=== PATIENT | female | born 1940 | race Caucasian/White ===

== ENCOUNTER 2022-02-22 13:54 | Inpatient (IN) ==
[2022-02-22] MEDS: Apixaban 2.5 MG TABLET PO SCH (20:50)
[2022-02-23 07:43] LABS: Basophils % 0.5 %; Eosinophils # 0.2 K/mcL (0.0-0.6); Eosinophils % 2.5 %; Hematocrit 35.1 % (35.3-44.9); Hemoglobin 11.8 g/dL (11.5-15.4); Immature Granulocytes % 3.3 % (0-4); Lymphocytes % 13.8 %; Mean Corpuscular HGB Conc 33.6 g/dL (31.6-35.5); Mean Corpuscular Volume 92.1 fL (83.0-100.0); Monocytes # 0.7 K/mcL (0.0-1.3); Monocytes % 8.9 %; Neutrophils # 5.2 K/mcL (1.6-8.9); Platelet Count 294 K/mcL (140-400); Red Blood Count 3.81 M/mcL (3.82-4.97); Red Cell Distribution Width 13.8 % (11.5-14.5); White Blood Count 7.3 K/mcL (4.3-11.1)
[2022-02-23] MEDS ORDERED: carvediloL 6.25 MG TABLET PO SCH (08:00)
[2022-02-23] MEDS: Apixaban 2.5 MG TABLET PO SCH ×3 (10:40→21:30)
[2022-02-23] MEDS: carvediloL 6.25 MG TABLET PO SCH ×2 (14:12→17:40)
[2022-02-23] MEDS: Acetaminophen 325 MG TABLET PO PRN (21:27)
[2022-02-24 08:18] LABS: Basophils # 0.1 K/mcL (0.0-0.2); Basophils % 0.6 %; Eosinophils # 0.3 K/mcL (0.0-0.6); Eosinophils % 2.9 %; Hematocrit 31.6 % (35.3-44.9); Hemoglobin 10.3 g/dL (11.5-15.4); Immature Granulocytes % 1.8 % (0-4); Lymphocytes # 1.9 K/mcL (0.6-4.6); Lymphocytes % 20.4 %; Mean Corpuscular HGB Conc 32.6 g/dL (31.6-35.5); Mean Corpuscular Hemoglobin 30.4 pg (28.0-33.3); Mean Corpuscular Volume 93.2 fL (83.0-100.0); Mean Platelet Volume 10.8 fL (9.4-12.4); Monocytes # 1.1 K/mcL (0.0-1.3); Monocytes % 11.7 %; Neutrophils # 5.9 K/mcL (1.6-8.9); Platelet Count 277 K/mcL (140-400); Red Blood Count 3.39 M/mcL (3.82-4.97); Red Cell Distribution Width 13.8 % (11.5-14.5); Segmented Neutrophils % 62.6 %; White Blood Count 9.4 K/mcL (4.3-11.1)
[2022-02-24 08:49] LABS: BUN/Creatinine Ratio 37 (6-26); Blood Urea Nitrogen 29 mg/dL (8-23); Calcium 8.4 mg/dL (8.6-10.3); Carbon Dioxide 28 mEq/L (23-29); Chloride 109 mEq/L (98-107); Glucose 89 mg/dL (70-105); Magnesium 1.8 mg/dL (1.6-2.6); Osmolality,Calculated 301 (280-300); Potassium 3.6 mEq/L (3.5-5.1); Sodium 143 mEq/L (136-145); eGFR For African Americans > 60 (> 60); eGFR For Non-African Americans > 60 (> 60)
[2022-02-24] MEDS: Apixaban 2.5 MG TABLET PO SCH ×2 (09:41→21:38)
[2022-02-24] MEDS: carvediloL 6.25 MG TABLET PO SCH ×2 (09:41→18:49)
[2022-02-24] MEDS: Acetaminophen 325 MG TABLET PO PRN (21:39)
[2022-02-25] MEDS: carvediloL 6.25 MG TABLET PO SCH ×2 (08:24→17:20)
[2022-02-25] MEDS: Apixaban 2.5 MG TABLET PO SCH ×2 (08:25→20:55)
[2022-02-25] MEDS: Acetaminophen 325 MG TABLET PO PRN ×2 (08:25→20:54)
[2022-02-26] MEDS: carvediloL 6.25 MG TABLET PO SCH ×2 (08:20→17:51)
[2022-02-26] MEDS: Acetaminophen 325 MG TABLET PO PRN ×2 (08:21→22:36)
[2022-02-26] MEDS: Apixaban 2.5 MG TABLET PO SCH ×2 (08:21→22:33)
[2022-02-27] MEDS: carvediloL 6.25 MG TABLET PO SCH ×2 (09:19→16:42)
[2022-02-27] MEDS: Apixaban 2.5 MG TABLET PO SCH ×2 (09:20→20:43)
[2022-02-27] MEDS: amLODIPine 5 MG TABLET PO SCH (16:42)
[2022-02-27] MEDS: Acetaminophen 325 MG TABLET PO PRN (20:46)
[2022-02-28] MEDS: Apixaban 2.5 MG TABLET PO SCH ×2 (09:59→22:21)
[2022-02-28] MEDS: amLODIPine 5 MG TABLET PO SCH (09:59)
[2022-02-28] MEDS: carvediloL 6.25 MG TABLET PO SCH ×2 (09:59→17:04)
[2022-02-28] MEDS: Acetaminophen 325 MG TABLET PO PRN ×2 (11:41→22:21)
[2022-03-01] MEDS: carvediloL 6.25 MG TABLET PO SCH ×2 (09:43→15:55)
[2022-03-01] MEDS: Apixaban 2.5 MG TABLET PO SCH ×2 (09:44→21:10)
[2022-03-01] MEDS: amLODIPine 5 MG TABLET PO SCH (09:44)
[2022-03-01] MEDS: Acetaminophen 325 MG TABLET PO PRN ×2 (13:29→21:09)
[2022-03-01] MEDS: Ascorbic Acid 500 MG TABLET PO SCH (13:29)
[2022-03-01] MEDS: *HR* HYDROcodone/Acet 5/325 mg TABLET PO PRN (15:55)
[2022-03-02] MEDS: Acetaminophen 325 MG TABLET PO PRN (09:59)
[2022-03-02] MEDS: carvediloL 6.25 MG TABLET PO SCH ×2 (10:00→18:14)
[2022-03-02] MEDS: Apixaban 2.5 MG TABLET PO SCH ×2 (10:01→20:18)
[2022-03-02] MEDS: Ascorbic Acid 500 MG TABLET PO SCH (10:01)
[2022-03-02] MEDS: amLODIPine 5 MG TABLET PO SCH (10:01)
[2022-03-02] MEDS: *HR* HYDROcodone/Acet 5/325 mg TABLET PO PRN (18:13)
[2022-03-02] MEDS: polyethylene glycoL 3350 17 GM POWD.PACK PO SCH (18:14)
[2022-03-03 06:26] LABS: Hematocrit 30.5 % (35.3-44.9); Mean Corpuscular HGB Conc 32.8 g/dL (31.6-35.5); Mean Corpuscular Hemoglobin 30.6 pg (28.0-33.3); Mean Corpuscular Volume 93.3 fL (83.0-100.0); Mean Platelet Volume 10.5 fL (9.4-12.4); Platelet Count 402 K/mcL (140-400); Red Blood Count 3.27 M/mcL (3.82-4.97); Red Cell Distribution Width 14.7 % (11.5-14.5); White Blood Count 9.3 K/mcL (4.3-11.1)
[2022-03-03 06:48] LABS: Calcium 8.4 mg/dL (8.6-10.3)
[2022-03-03] MEDS: polyethylene glycoL 3350 17 GM POWD.PACK PO SCH (07:53)
[2022-03-03] MEDS: Ascorbic Acid 500 MG TABLET PO SCH (07:54)
[2022-03-03] MEDS: Apixaban 2.5 MG TABLET PO SCH ×2 (07:54→20:07)
[2022-03-03] MEDS: carvediloL 6.25 MG TABLET PO SCH ×2 (07:54→17:59)
[2022-03-03] MEDS: amLODIPine 5 MG TABLET PO SCH (07:55)
[2022-03-03] MEDS: Acetaminophen 325 MG TABLET PO PRN (21:01)
[2022-03-04] MEDS: carvediloL 6.25 MG TABLET PO SCH ×2 (08:13→17:49)
[2022-03-04] MEDS: Apixaban 2.5 MG TABLET PO SCH ×2 (08:13→20:09)
[2022-03-04] MEDS: amLODIPine 5 MG TABLET PO SCH (08:13)
[2022-03-04] MEDS: Ascorbic Acid 500 MG TABLET PO SCH (08:14)
[2022-03-04] MEDS: polyethylene glycoL 3350 17 GM POWD.PACK PO SCH (08:15)
[2022-03-04] MEDS: Acetaminophen 325 MG TABLET PO PRN ×2 (14:46→21:16)
[2022-03-05] MEDS: amLODIPine 5 MG TABLET PO SCH (07:48)
[2022-03-05] MEDS: carvediloL 6.25 MG TABLET PO SCH ×2 (07:48→17:05)
[2022-03-05] MEDS: Ascorbic Acid 500 MG TABLET PO SCH (07:48)
[2022-03-05] MEDS: Apixaban 2.5 MG TABLET PO SCH ×2 (07:48→20:36)
[2022-03-05] MEDS: polyethylene glycoL 3350 17 GM POWD.PACK PO SCH (07:49)
[2022-03-05] MEDS: Acetaminophen 325 MG TABLET PO PRN ×2 (07:57→17:05)
[2022-03-06] MEDS: polyethylene glycoL 3350 17 GM POWD.PACK PO SCH (08:24)
[2022-03-06] MEDS: amLODIPine 5 MG TABLET PO SCH (08:25)
[2022-03-06] MEDS: carvediloL 6.25 MG TABLET PO SCH ×2 (08:25→16:26)
[2022-03-06] MEDS: Ascorbic Acid 500 MG TABLET PO SCH (08:26)
[2022-03-06] MEDS: Apixaban 2.5 MG TABLET PO SCH ×2 (08:26→19:41)
[2022-03-06] MEDS ORDERED: hydrALAZINE 25 MG TABLET PO PRN (08:26)
[2022-03-06] MEDS: *HR* HYDROcodone/Acet 5/325 mg TABLET PO PRN (21:07)
[2022-03-07] MEDS: Ascorbic Acid 500 MG TABLET PO SCH (08:06)
[2022-03-07] MEDS: amLODIPine 5 MG TABLET PO SCH (08:06)
[2022-03-07] MEDS: carvediloL 6.25 MG TABLET PO SCH ×2 (08:07→15:39)
[2022-03-07] MEDS: Apixaban 2.5 MG TABLET PO SCH ×2 (08:07→20:18)
[2022-03-07] MEDS: polyethylene glycoL 3350 17 GM POWD.PACK PO SCH (08:07)
[2022-03-07] MEDS: *HR* HYDROcodone/Acet 5/325 mg TABLET PO PRN (22:42)
[2022-03-08] MEDS: polyethylene glycoL 3350 17 GM POWD.PACK PO SCH (08:57)
[2022-03-08] MEDS: carvediloL 6.25 MG TABLET PO SCH ×2 (08:58→15:31)
[2022-03-08] MEDS: Ascorbic Acid 500 MG TABLET PO SCH (08:58)
[2022-03-08] MEDS: Apixaban 2.5 MG TABLET PO SCH ×2 (08:59→21:03)
[2022-03-08] MEDS: amLODIPine 5 MG TABLET PO SCH (08:59)
[2022-03-08] MEDS: *HR* HYDROcodone/Acet 5/325 mg TABLET PO PRN (21:03)
[2022-03-09] MEDS: carvediloL 6.25 MG TABLET PO SCH ×2 (09:05→15:08)
[2022-03-09] MEDS: Ascorbic Acid 500 MG TABLET PO SCH (09:05)
[2022-03-09] MEDS: Apixaban 2.5 MG TABLET PO SCH ×2 (09:06→20:47)
[2022-03-09] MEDS: amLODIPine 5 MG TABLET PO SCH (09:06)
[2022-03-09] MEDS: polyethylene glycoL 3350 17 GM POWD.PACK PO SCH (09:07)
[2022-03-10] MEDS: Ascorbic Acid 500 MG TABLET PO SCH (07:34)
[2022-03-10] MEDS: polyethylene glycoL 3350 17 GM POWD.PACK PO SCH (07:37)
[2022-03-10] MEDS: Apixaban 2.5 MG TABLET PO SCH ×2 (07:37→20:35)
[2022-03-10] MEDS: carvediloL 6.25 MG TABLET PO SCH ×2 (07:42→17:31)
[2022-03-10] MEDS: amLODIPine 5 MG TABLET PO SCH (08:12)
[2022-03-10] MEDS: *HR* HYDROcodone/Acet 5/325 mg TABLET PO PRN (14:46)
[2022-03-11] MEDS: amLODIPine 5 MG TABLET PO SCH (08:38)
[2022-03-11] MEDS: Apixaban 2.5 MG TABLET PO SCH ×2 (08:38→22:16)
[2022-03-11] MEDS: carvediloL 6.25 MG TABLET PO SCH ×2 (08:38→16:19)
[2022-03-11] MEDS: Ascorbic Acid 500 MG TABLET PO SCH (08:39)
[2022-03-11] MEDS: polyethylene glycoL 3350 17 GM POWD.PACK PO SCH (08:39)
[2022-03-11] MEDS: *HR* HYDROcodone/Acet 5/325 mg TABLET PO PRN (16:19)
[2022-03-12] MEDS: polyethylene glycoL 3350 17 GM POWD.PACK PO SCH (08:29)
[2022-03-12] MEDS: Ascorbic Acid 500 MG TABLET PO SCH (08:30)
[2022-03-12] MEDS: carvediloL 6.25 MG TABLET PO SCH ×2 (08:30→16:26)
[2022-03-12] MEDS: Apixaban 2.5 MG TABLET PO SCH ×2 (08:30→21:03)
[2022-03-13] MEDS: polyethylene glycoL 3350 17 GM POWD.PACK PO SCH (09:51)
[2022-03-13] MEDS: Apixaban 2.5 MG TABLET PO SCH ×2 (09:53→20:33)
[2022-03-13] MEDS: Ascorbic Acid 500 MG TABLET PO SCH (09:53)
[2022-03-13] MEDS: carvediloL 6.25 MG TABLET PO SCH ×2 (09:53→18:36)
[2022-03-13] MEDS: *HR* HYDROcodone/Acet 5/325 mg TABLET PO PRN (18:41)
[2022-03-14] MEDS: polyethylene glycoL 3350 17 GM POWD.PACK PO SCH (09:32)
[2022-03-14] MEDS: Ascorbic Acid 500 MG TABLET PO SCH (09:32)
[2022-03-14] MEDS: Apixaban 2.5 MG TABLET PO SCH ×2 (09:33→20:48)
[2022-03-14] MEDS: carvediloL 6.25 MG TABLET PO SCH ×2 (09:34→16:20)
[2022-03-14] MEDS: *HR* HYDROcodone/Acet 5/325 mg TABLET PO PRN (09:43)
[2022-03-14] MEDS: Acetaminophen 325 MG TABLET PO PRN (20:47)
[2022-03-15] MEDS: Ascorbic Acid 500 MG TABLET PO SCH (09:46)
[2022-03-15] MEDS: carvediloL 6.25 MG TABLET PO SCH ×2 (09:46→17:43)
[2022-03-15] MEDS: Apixaban 2.5 MG TABLET PO SCH ×2 (09:46→21:08)
[2022-03-15] MEDS: polyethylene glycoL 3350 17 GM POWD.PACK PO SCH (09:47)
[2022-03-15] MEDS: Acetaminophen 325 MG TABLET PO PRN (21:07)
[2022-03-16 05:02] LABS: Basophils % 0.5 %; Eosinophils # 0.4 K/mcL (0.0-0.6); Eosinophils % 5.8 %; Hematocrit 31.6 % (35.3-44.9); Hemoglobin 10.3 g/dL (11.5-15.4); Immature Granulocytes % 0.8 % (0-4); Lymphocytes # 1.1 K/mcL (0.6-4.6); Lymphocytes % 18.5 %; Mean Corpuscular HGB Conc 32.6 g/dL (31.6-35.5); Mean Corpuscular Volume 95.2 fL (83.0-100.0); Mean Platelet Volume 10.2 fL (9.4-12.4); Monocytes # 0.8 K/mcL (0.0-1.3); Monocytes % 12.9 %; Neutrophils # 3.7 K/mcL (1.6-8.9); Platelet Count 340 K/mcL (140-400); Red Blood Count 3.32 M/mcL (3.82-4.97); Red Cell Distribution Width 14.7 % (11.5-14.5); Segmented Neutrophils % 61.5 %; White Blood Count 6.1 K/mcL (4.3-11.1)
[2022-03-16 05:21] LABS: Calcium 8.8 mg/dL (8.6-10.3); Potassium 3.9 mEq/L (3.5-5.1)
[2022-03-16 07:57] VITALS: BP 153/71; PULSE 73; RESP 16; TEMP 98; O2SAT 95
[2022-03-16] MEDS: carvediloL 6.25 MG TABLET PO SCH (08:34)
[2022-03-16] MEDS: Ascorbic Acid 500 MG TABLET PO SCH (08:34)
[2022-03-16] MEDS: Apixaban 2.5 MG TABLET PO SCH (08:35)
[2022-03-16] MEDS: *HR* HYDROcodone/Acet 5/325 mg TABLET PO PRN (08:36)
[2022-03-16] MEDS: polyethylene glycoL 3350 17 GM POWD.PACK PO SCH (08:37)
== END 2022-03-16 11:40 | disposition home or self-care (01) | DRG 561 ==
LOC: INPPIK 17:59
PROVIDERS: ADMIT Family Medicine; ATTEND Family Medicine

== ENCOUNTER 2022-04-01 14:45 | Inpatient (IN) ==
[2022-04-01] MEDS: carvediloL 6.25 MG TABLET PO SCH (17:01)
[2022-04-02 05:57] LABS: Basophils # 0.1 K/mcL (0.0-0.2); Basophils % 0.6 %; Eosinophils # 0.5 K/mcL (0.0-0.6); Eosinophils % 5.7 %; Hematocrit 36.9 % (35.3-44.9); Immature Granulocytes % 0.9 % (0-4); Lymphocytes # 1.4 K/mcL (0.6-4.6); Lymphocytes % 18.3 %; Mean Corpuscular HGB Conc 32.5 g/dL (31.6-35.5); Mean Corpuscular Volume 95.3 fL (83.0-100.0); Mean Platelet Volume 10.6 fL (9.4-12.4); Monocytes # 0.9 K/mcL (0.0-1.3); Monocytes % 11.4 %; Platelet Count 281 K/mcL (140-400); Red Blood Count 3.87 M/mcL (3.82-4.97); Red Cell Distribution Width 13.7 % (11.5-14.5); Segmented Neutrophils % 63.1 %; White Blood Count 7.9 K/mcL (4.3-11.1)
[2022-04-02 06:17] LABS: Calcium 8.9 mg/dL (8.6-10.3); Potassium 3.5 mEq/L (3.5-5.1)
[2022-04-02] MEDS: *HR* Enoxaparin 40 MG/0.4 ML SYRINGE SQ SCH (11:34)
[2022-04-02] MEDS: carvediloL 6.25 MG TABLET PO SCH ×2 (11:34→16:10)
[2022-04-02] MEDS: Aspirin Enteric Coated 325 MG Tablet PO SCH (11:34)
[2022-04-02] MEDS: hydrALAZINE 25 MG TABLET PO PRN (21:02)
[2022-04-03] MEDS: *HR* Enoxaparin 40 MG/0.4 ML SYRINGE SQ SCH (06:44)
[2022-04-03] MEDS: Aspirin Enteric Coated 325 MG Tablet PO SCH (08:41)
[2022-04-03] MEDS: carvediloL 6.25 MG TABLET PO SCH ×2 (08:41→17:51)
[2022-04-03] MEDS: hydrALAZINE 25 MG TABLET PO PRN ×2 (09:17→22:27)
[2022-04-04] MEDS: *HR* Enoxaparin 40 MG/0.4 ML SYRINGE SQ SCH (08:04)
[2022-04-04] MEDS: hydrALAZINE 25 MG TABLET PO PRN ×3 (08:04→16:40)
[2022-04-04] MEDS: Aspirin Enteric Coated 325 MG Tablet PO SCH (08:38)
[2022-04-04] MEDS: carvediloL 6.25 MG TABLET PO SCH ×2 (08:38→16:40)
[2022-04-04] MEDS: polyethylene glycoL 3350 17 GM POWD.PACK PO SCH (13:45)
[2022-04-05] MEDS: polyethylene glycoL 3350 17 GM POWD.PACK PO SCH (08:48)
[2022-04-05] MEDS: carvediloL 6.25 MG TABLET PO SCH ×2 (08:48→17:59)
[2022-04-05] MEDS: hydrALAZINE 25 MG TABLET PO PRN (08:48)
[2022-04-05] MEDS: *HR* Enoxaparin 40 MG/0.4 ML SYRINGE SQ SCH (08:48)
[2022-04-05] MEDS: Aspirin Enteric Coated 325 MG Tablet PO SCH (08:48)
[2022-04-06] MEDS: hydrALAZINE 25 MG TABLET PO PRN ×2 (09:37→20:56)
[2022-04-06] MEDS: carvediloL 6.25 MG TABLET PO SCH ×2 (09:37→18:20)
[2022-04-06] MEDS: *HR* Enoxaparin 40 MG/0.4 ML SYRINGE SQ SCH (09:37)
[2022-04-06] MEDS: polyethylene glycoL 3350 17 GM POWD.PACK PO SCH (09:37)
[2022-04-06] MEDS: Aspirin Enteric Coated 325 MG Tablet PO SCH (09:37)
[2022-04-07] MEDS: *HR* Enoxaparin 40 MG/0.4 ML SYRINGE SQ SCH (07:02)
[2022-04-07] MEDS: Aspirin Enteric Coated 325 MG Tablet PO SCH (08:18)
[2022-04-07] MEDS: polyethylene glycoL 3350 17 GM POWD.PACK PO SCH (08:18)
[2022-04-07] MEDS: carvediloL 6.25 MG TABLET PO SCH ×2 (08:19→17:13)
[2022-04-07] MEDS: hydrALAZINE 25 MG TABLET PO PRN (17:13)
[2022-04-08] MEDS: hydrALAZINE 25 MG TABLET PO PRN ×2 (08:07→20:51)
[2022-04-08] MEDS: Aspirin Enteric Coated 325 MG Tablet PO SCH (08:07)
[2022-04-08] MEDS: carvediloL 6.25 MG TABLET PO SCH ×2 (08:08→18:33)
[2022-04-08] MEDS: polyethylene glycoL 3350 17 GM POWD.PACK PO SCH (08:08)
[2022-04-08] MEDS: *HR* Enoxaparin 40 MG/0.4 ML SYRINGE SQ SCH (08:08)
[2022-04-09] MEDS: *HR* Enoxaparin 40 MG/0.4 ML SYRINGE SQ SCH (07:55)
[2022-04-09] MEDS: Aspirin Enteric Coated 325 MG Tablet PO SCH (10:01)
[2022-04-09] MEDS: carvediloL 6.25 MG TABLET PO SCH ×2 (10:02→17:13)
[2022-04-09] MEDS: polyethylene glycoL 3350 17 GM POWD.PACK PO SCH (10:03)
[2022-04-09] MEDS: hydrALAZINE 25 MG TABLET PO SCH ×2 (17:13→23:44)
[2022-04-10] MEDS: *HR* Enoxaparin 40 MG/0.4 ML SYRINGE SQ SCH (05:42)
[2022-04-10] MEDS: hydrALAZINE 25 MG TABLET PO SCH ×2 (08:10→16:18)
[2022-04-10] MEDS: Aspirin Enteric Coated 325 MG Tablet PO SCH (08:11)
[2022-04-10] MEDS: carvediloL 6.25 MG TABLET PO SCH ×2 (08:11→16:18)
[2022-04-10] MEDS: polyethylene glycoL 3350 17 GM POWD.PACK PO SCH (08:12)
[2022-04-11] MEDS: hydrALAZINE 25 MG TABLET PO SCH ×3 (00:06→17:36)
[2022-04-11] MEDS: *HR* Enoxaparin 40 MG/0.4 ML SYRINGE SQ SCH (05:38)
[2022-04-11] MEDS: carvediloL 6.25 MG TABLET PO SCH ×2 (10:12→17:35)
[2022-04-11] MEDS: Aspirin Enteric Coated 325 MG Tablet PO SCH (10:12)
[2022-04-11] MEDS: polyethylene glycoL 3350 17 GM POWD.PACK PO SCH (10:12)
[2022-04-12] MEDS: hydrALAZINE 25 MG TABLET PO SCH ×3 (00:34→17:53)
[2022-04-12] MEDS: *HR* Enoxaparin 40 MG/0.4 ML SYRINGE SQ SCH (05:11)
[2022-04-12] MEDS: polyethylene glycoL 3350 17 GM POWD.PACK PO SCH (08:17)
[2022-04-12] MEDS: Aspirin Enteric Coated 325 MG Tablet PO SCH (08:17)
[2022-04-12] MEDS: carvediloL 6.25 MG TABLET PO SCH ×2 (08:17→17:53)
[2022-04-13] MEDS: hydrALAZINE 25 MG TABLET PO SCH ×3 (00:26→17:59)
[2022-04-13] MEDS: *HR* Enoxaparin 40 MG/0.4 ML SYRINGE SQ SCH (05:31)
[2022-04-13] MEDS: polyethylene glycoL 3350 17 GM POWD.PACK PO SCH (09:38)
[2022-04-13] MEDS: Aspirin Enteric Coated 325 MG Tablet PO SCH (09:38)
[2022-04-13] MEDS: carvediloL 6.25 MG TABLET PO SCH ×2 (09:38→17:59)
[2022-04-13] MEDS: amLODIPine 5 MG TABLET PO SCH (15:39)
[2022-04-14] MEDS: hydrALAZINE 25 MG TABLET PO SCH ×4 (00:12→23:18)
[2022-04-14] MEDS: *HR* Enoxaparin 40 MG/0.4 ML SYRINGE SQ SCH (06:00)
[2022-04-14] MEDS: Aspirin Enteric Coated 325 MG Tablet PO SCH (09:20)
[2022-04-14] MEDS: amLODIPine 5 MG TABLET PO SCH (09:20)
[2022-04-14] MEDS: carvediloL 6.25 MG TABLET PO SCH ×2 (09:20→16:05)
[2022-04-14] MEDS: polyethylene glycoL 3350 17 GM POWD.PACK PO SCH (09:21)
[2022-04-14 21:53] VITALS: RESP 16
[2022-04-15] MEDS: *HR* Enoxaparin 40 MG/0.4 ML SYRINGE SQ SCH (05:48)
[2022-04-15] MEDS: amLODIPine 5 MG TABLET PO SCH (09:00)
[2022-04-15] MEDS: Aspirin Enteric Coated 325 MG Tablet PO SCH (09:00)
[2022-04-15] MEDS: hydrALAZINE 25 MG TABLET PO SCH ×2 (09:00→16:37)
[2022-04-15] MEDS: polyethylene glycoL 3350 17 GM POWD.PACK PO SCH (09:00)
[2022-04-15] MEDS: carvediloL 6.25 MG TABLET PO SCH ×2 (09:00→16:37)
[2022-04-15] MEDS ORDERED: amLODIPine 5 MG TABLET PO ONE (21:00)
[2022-04-16] MEDS: *HR* Enoxaparin 40 MG/0.4 ML SYRINGE SQ SCH (06:35)
[2022-04-16 07:47] VITALS: BP 177/77; PULSE 72; TEMP 98.2; O2SAT 94
[2022-04-16] MEDS: carvediloL 6.25 MG TABLET PO SCH (10:32)
[2022-04-16] MEDS: hydrALAZINE 25 MG TABLET PO SCH ×2 (10:33)
[2022-04-16] MEDS: polyethylene glycoL 3350 17 GM POWD.PACK PO SCH (10:33)
[2022-04-16] MEDS: Aspirin Enteric Coated 325 MG Tablet PO SCH (10:33)
[2022-04-16] MEDS ORDERED: amLODIPine 5 MG TABLET PO SCH (21:00)
== END 2022-04-16 12:45 | disposition home health service (06) | DRG 65 ==
LOC: SUATTDRO 14:58 → INPPIK 14:58
PROVIDERS: ADMIT Family Medicine; ATTEND Nurse Practitioner